=== PATIENT | female | born 1970 | race Caucasian/White ===

== ENCOUNTER 2017-12-24 10:33 | Outpatient (CLI) | payer OTHER ==
--- NOTE | 2017-12-27 08:51 | Mammography Report ---
Reason: ANNUAL SCREENING Procedure Date: 12/24/2017 Accession Number: [id number] / [id number] Procedure: GABBY - Screening Mammo w/Ridge CPT Code: FULL RESULT: EXAM: Screening Mammo w/Ridge DATE: 12/24/2017 11:54 AM CLINICAL HISTORY: Routine screening. Family history breast cancer mother age 56 and grandmother age 60. No personal history of breast cancer. TECHNIQUE: Bilateral CC and MLO views were obtained. COMPARISON: 03/14/2015 through 03/25/2012 FINDINGS: The breasts demonstrate heterogeneously dense fibroglandular parenchyma bilaterally. There is suboptimal inclusion of posterior tissues and pectoralis muscle on the right MLO view compared to prior exams. There are no suspicious masses, calcifications or areas of distortion. IMPRESSION: Incomplete examination RECOMMENDATION: Technical repeat right MLO view. BI-RADS CATEGORY 0: Incomplete examination STANDARD QUALIFYING STATEMENTS: 1. This examination was not reviewed with the aid of Computer-Aided Detection (CAD). 2. A negative or benign imaging report should not preclude biopsy if clinically suspicious findings are present. 3. Dense breasts may obscure an underlying neoplasm. 4. This examination was reviewed with the aid of 3D breast imaging (tomosynthesis).
== END 2017-12-24 10:34 | disposition home or self-care (01) ==
LOC: DI 10:33
PROVIDERS: ATTEND Registered Nurse
DX: Z12.31 Encounter for screening mammogram for malignant neoplasm of breast (principal); R92.2 Inconclusive mammogram; Z80.3 Family history of malignant neoplasm of breast
CPT/HCPCS: 77063; 77067

== ENCOUNTER 2017-12-24 10:38 | Outpatient (CLI) | payer OTHER ==
--- NOTE | 2017-12-24 13:33 | Ultrasound Report ---
Reason: MENORRHAGIA, DYSMENORRHEA Procedure Date: 12/24/2017 Accession Number: [id number] / [id number] Procedure: US - Pelvic w/Transvaginal CPT Code: FULL RESULT: EXAM: PELVIC ULTRASOUND EXAM DATE: 12/24/2017 12:48 PM. CLINICAL HISTORY: MENORRHAGIA, DYSMENORRHEA. COMPARISON: None. TECHNIQUE: Realtime transabdominal pelvic scan performed to identify the uterus and adnexa and as an overview of other pelvic structures, followed by transvaginal scan to provide greater detail of the uterus and adnexa, with static image documentation. FINDINGS: Uterus: 6.9 x 4.8 x 4.2 cm, volume 72 cc. Anteverted position. Normal overall size and echotexture. Masses: None. Endometrium: 6 mm. Normal. Cervix: Unremarkable. Right Ovary: 3.1 x 2 x 1.4 cm, volume 4.5 cc. Normal echotexture and blood flow. Left Ovary: 2 x 1.8 x 1.4 cm, volume 2.6 cc. Normal echotexture and blood flow. Free Fluid: None. Other: None. IMPRESSION: Normal pelvic ultrasound. [facility]
== END 2017-12-24 10:39 | disposition home or self-care (01) ==
LOC: DI 10:38
PROVIDERS: ATTEND Registered Nurse
DX: N92.0 Excessive and frequent menstruation with regular cycle (principal); N94.6 Dysmenorrhea, unspecified
CPT/HCPCS: 76830; 76856

== ENCOUNTER 2018-04-12 08:52 | Outpatient (CLI) | payer OTHER ==
--- NOTE | 2018-04-12 16:53 | Mammography Report ---
Reason: ROUTINE MAMMO Procedure Date: 04/12/2018 Accession Number: [id number] / [id number] Procedure: GABBY - Screening Mammo w/Ridge CPT Code: FULL RESULT: EXAM: Screening Mammo w/Ridge DATE: 04/12/2018 9:37 AM CLINICAL HISTORY: Technical recall from screening for repeat right MLO view. TECHNIQUE: The right MLO view was obtained. COMPARISON: 12/24/2017 through 03/25/2012. FINDINGS: Images are interpreted in conjunction with the images obtained 12/24/2017. The breasts demonstrate heterogeneously dense fibroglandular parenchyma bilaterally. No suspicious masses, clustered microcalcifications, or regions of architectural distortion are identified. IMPRESSION: Negative examination RECOMMENDATION: Routine annual screening unless otherwise clinically indicated. BIRADS CATEGORY 1: Negative STANDARD QUALIFYING STATEMENTS: 1. This examination was not reviewed with the aid of Computer-Aided Detection (CAD). 2. A negative or benign imaging report should not delay biopsy if clinically suspicious findings are present. Consider surgical consultation if warrented. More than 5% of cancers are not identified by imaging. 3. Dense breasts may obscure an underlying neoplasm. 4. This examination was reviewed with the aid of 3D breast imaging (tomosynthesis).
== END 2018-04-12 08:53 | disposition home or self-care (01) ==
LOC: DI 08:52
PROVIDERS: ATTEND Registered Nurse
DX: Z12.31 Encounter for screening mammogram for malignant neoplasm of breast (principal)
CPT/HCPCS: 77063; 77067

== ENCOUNTER 2018-12-30 07:42 | Emergency (ER) | payer OTHER ==
[2018-12-30] MEDS ORDERED: LIDOCAINE VISCOUS 2% 15 ML UDC MM STA (07:57)
[2018-12-30] MEDS ORDERED: ONDANSETRON 4 MG/2 ML VIAL IVP STA (07:57)
[2018-12-30] MEDS ORDERED: MAG HYDROX/AL HYDROX/SIMETH 30 ML UDC PO STA (07:57)
[2018-12-30] MEDS ORDERED: SUCRALFATE 1 GM/10 ML UDC PO STA (07:57)
[2018-12-30] MEDS ORDERED: FAMOTIDINE 20 MG TABLET PO STA (07:57)
--- NOTE | 2018-12-30 08:02 | ED Physician Documentation ---
History of Present Illness - Stated complaint Stated Complaint: CP/SOA - History obtained from History obtained from: Patient - History of Present Illness Timing: How many days ago (2) Pain level max: 7 Pain level now: 5 - Additonal information Additional information: 48-year-old female with a history of GERD presents to the emergency department complaining of substernal chest pain for the past 2 days. Constant. Worse with eating or drinking. States every time she eats or drinks she feels like she is going to vomit. Is taking omeprazole. Saw her GI yesterday for same. She states she is not taking any Maalox, Carafate, Pepcid, etc. No cardiac history. No shortness of breath. Pain does not radiate. No diarrhea. No fevers. No recent illnesses. Review of Systems Ten Systems: 10 systems reviewed and negative Constitutional: denies: Fever, Chills Cardiac: denies: Palpitations Respiratory: denies: Cough GI: reports: Abdominal Pain (Epigastric), Nausea, Vomiting. denies: Diarrhea : denies: Dysuria Skin: denies: Rash Musculoskeletal: denies: Neck pain, Back pain Neurologic: denies: Headache PD PAST MEDICAL HISTORY - Past Medical History Past Medical History: Yes GI: GERD - Past Surgical History Past Surgical History: No - Present Medications Home Medications: Ambulatory Orders Medication Instructions Recorded Confirmed Albuterol Sulf [Ventolin Hfa 0 puffs PRN 12/30/18 Inhaler] FLUoxetine [PROzac] 0 mg DAILY 12/30/18 12/30/18 Famotidine [Pepcid] 20 mg PO BID #60 tablet 12/30/18 Omeprazole 0 mg DAILY 12/30/18 12/30/18 Ondansetron Odt [Zofran] 4 mg TL Q6H PRN #10 tablet 12/30/18 Purple [place] Steroid Inhale 0 puffs 12/30/18 Sucralfate [Carafate] 1 gm PO ACHS #60 tablet 12/30/18 - Allergies Allergies/Adverse Reactions: Allergies Allergy/AdvReac Type Severity Reaction Status Date / Time No Known Drug Allergies Allergy Verified 12/30/18 08:43 - Living Situation Living Situation: reports: With family Living Arrangement: reports: At home - Social History Does the pt smoke?: No Does the pt drink ETOH?: No Does the pt have substance abuse?: Yes Substance Use and Type: Marijuana - Family History Family history: reports: Non contributory PD ED PE NORMAL - Vitals Vital signs reviewed: Yes - General General: Alert and oriented X 3, No acute distress - HEENT HEENT: PERRL, Moist mucous membranes - Neck Neck: Supple, no meningeal sign - Cardiac Cardiac: RRR, Strong equal pulses - Respiratory Respiratory: No respiratory distress, Clear bilaterally - Abdomen Abdomen: Soft, Non tender, Non distended - Derm Derm: Warm and dry - Extremities Extremities: No edema - Neuro Neuro: Alert and oriented X 3 - Psych Psych: Normal mood, Normal affect Results - Vitals Vitals: Vital Signs - 24 hr 12/30/18 12/30/18 12/30/18 07:48 08:14 08:33 Temperature 36.9 C Heart Rate 74 84 Respiratory 20 22 Rate Blood Pressure 157/100 H 135/84 H O2 Saturation 99 98 12/30/18 09:40 Temperature 98.3 C H Heart Rate 71 Respiratory 16 Rate Blood Pressure 145/82 H O2 Saturation 96 Oxygen O2 Source Room air - EKG (time done) 0750 Rate: Rate (enter#) (73) Rhythm: NSR [place]: Normal Intervals: Normal [place] QRS: Normal Ischemia: Normal ST segments Computer interpretation: Agree with computer - Labs Labs: Laboratory Tests 12/30/18 12/30/18 12/30/18 08:30 08:30 08:30 WBC 11.1 H RBC 4.89 Hgb 15.6 Hct 46.3 MCV 94.7 MCH 31.9 H MCHC 33.7 RDW 13.6 Plt Count 274 MPV 10.7 Neut # (Auto) 9.2 H Lymph # (Auto) 1.2 L [place] # (Auto) 0.5 Eos # (Auto) 0.1 Baso # (Auto) 0.1 Absolute Nucleated RBC 0.00 Nucleated RBC % 0.0 Sodium 138 Potassium 3.4 L Chloride 105 Carbon Dioxide 23 Anion Gap 10.0 BUN 8 Creatinine 0.6 Estimated GFR (MDRD) 108 Glucose 128 H Calcium 8.9 Total Bilirubin 1.1 H AST 19 ALT 22 Alkaline Phosphatase 43 Troponin I High Sens < 2.3 L Total Protein 8.2 Albumin 4.2 Globulin 4.0 Albumin/Globulin Ratio 1.1 Lipase 24 - Rads (name of study) cxr Radiology: Prelim report reviewed, EMP read contemporaneously, See rad report (normal) PD MEDICAL DECISION MAKING - ED course Complexity details: reviewed results, re-evaluated patient, considered differential, d/w patient ED course: Patient with chest pain that is consistent with gastroesophageal reflux disease. Symptoms resolved with GI cocktail. Feels much better. Tolerating p.o. without difficulty. We will add Pepcid, Carafate and Zofran to her current regimen. Patient counseled regarding signs and symptoms for which I believe and urgent re-evaluation would be necessary. Patient with good understanding of and agreement to plan and is comfortable going home at this time This document was made in part using voice recognition software. While efforts are made to proofread this document, sound alike and grammatical errors may occur. Departure - Departure Disposition: 01 Home, Self Care Clinical Impression: GERD (gastroesophageal reflux disease) Qualifiers: Esophagitis presence: with esophagitis Qualified Code(s): K21.0 - Gastro- esophageal reflux disease with esophagitis Condition: Good Instructions: ED GERD Follow-Up: Tasneem Waite ARNP [Primary Care Provider] - Within 1 week Prescriptions: Famotidine [Pepcid] 20 mg PO BID #60 tablet Ondansetron Odt [Zofran] 4 mg TL Q6H PRN #10 tablet PRN Reason: Nausea / Vomiting Sucralfate [Carafate] 1 gm PO ACHS #60 tablet Comments: Return if you worsen. Follow-up with your doctor for further care. Drink plenty of fluids. Eat a bland diet. Avoid anything fried, spicy. Avoid aspirin, ibuprofen. Avoid alcohol. Discharge Date/Time: 12/30/18 09:43
--- NOTE | 2018-12-30 08:37 | XRAY Report ---
Reason: chest pain Procedure Date: 12/30/2018 Accession Number: [id number] / [id number] Procedure: XR - Chest 1 View X-Ray CPT Code: 76408 Final Report FULL RESULT: EXAM: CHEST RADIOGRAPHY EXAM DATE: 12/30/2018 08:15 AM. CLINICAL HISTORY: Chest pain. COMPARISON: 05/07/2008 3:56 AM. TECHNIQUE: 1 view. FINDINGS: Lungs/Pleura: No focal opacities evident. No pleural effusion. No pneumothorax. Mediastinum: Within exam limitations, the cardiomediastinal contour is normal. Other: None. IMPRESSION: Normal single view chest. [facility]
[2018-12-30 08:39] LABS: BASOPHILS # (AUTO) 0.1 10^3/uL (0.0-0.1); BASOPHILS % (AUTO) 0.4 %; EOSINOPHILS # (AUTO) 0.1 10^3/uL (0.0-0.7); HGB - HEMOGLOBIN 15.6 g/dL (12.0-16.0); LYMPHOCYTES # (AUTO) 1.2 10^3/uL (1.5-3.5); LYMPHOCYTES % (AUTO) 11.1 %; MEAN CORPUSCULAR HEMOGLOBIN 31.9 pg (27.0-31.0); MEAN CORPUSCULAR HGB CONC 33.7 g/dL (32.0-36.0); MEAN CORPUSCULAR VOLUME 94.7 fL (81.0-99.0); MEAN PLATELET VOLUME 10.7 fL (7.9-10.8); MONOCYTES # (AUTO) 0.5 10^3/uL (0.0-1.0); MONOCYTES % (AUTO) 4.1 %; NEUTROPHILS # (AUTO) 9.2 10^3/uL (1.5-6.6); PLT - PLATELET COUNT 274 10^3/uL (130-450); RED BLOOD COUNT 4.89 10^6/uL (4.20-5.40); RED CELL DISTRIBUTION WIDTH 13.6 % (12.0-15.0); WHITE BLOOD COUNT 11.1 x10^3/uL (4.8-10.8)
[2018-12-30] MEDS ORDERED: ACETAMINOPHEN 325 MG TABLET PO STA (08:48)
[2018-12-30 08:53] LABS: ALBUMIN 4.2 g/dL (3.2-5.5); ALBUMIN/GLOBULIN RATIO 1.1 (1.0-2.2); BILIRUBIN,TOTAL 1.1 mg/dL (0.2-1.0); CALCIUM 8.9 mg/dL (8.5-10.3); CREATININE 0.6 mg/dL (0.4-1.0); TOTAL PROTEIN 8.2 g/dL (6.7-8.2)
[2018-12-30 09:42] VITALS: BP 145/82
== END 2018-12-30 09:43 | disposition home or self-care (01) ==
LOC: ED 07:42
DX: K21.0 Gastro-esophageal reflux disease with esophagitis (principal)
CPT/HCPCS: 36415; 71045; 80053; 83690; 84484; 85025; 93005; 96374; 99284; A9270

== ENCOUNTER 2021-07-02 10:55 | Outpatient (CLI) | payer OTHER ==
[2021-07-02 14:08] LABS: BASOPHILS # (AUTO) 0.1 10^3/uL (0.0-0.1); BASOPHILS % (AUTO) 0.7 %; EOSINOPHILS # (AUTO) 0.4 10^3/uL (0.0-0.7); EOSINOPHILS % (AUTO) 5.5 %; HCT - HEMATOCRIT 44.8 % (37.0-47.0); HGB - HEMOGLOBIN 14.8 g/dL (12.0-16.0); LYMPHOCYTES # (AUTO) 2.4 10^3/uL (1.5-3.5); LYMPHOCYTES % (AUTO) 32.5 %; MEAN CORPUSCULAR VOLUME 93.9 fL (81.0-99.0); MONOCYTES # (AUTO) 0.5 10^3/uL (0.0-1.0); MONOCYTES % (AUTO) 6.2 %; NEUTROPHILS % (AUTO) 54.8 %; PLT - PLATELET COUNT 299 10^3/uL (130-450); RED BLOOD COUNT 4.77 10^6/uL (4.20-5.40); RED CELL DISTRIBUTION WIDTH 14.7 % (12.0-15.0); WHITE BLOOD COUNT 7.3 x10^3/uL (4.8-10.8)
[2021-07-02 14:41] LABS: ALBUMIN 3.9 g/dL (3.2-5.5); ALBUMIN/GLOBULIN RATIO 1.1 (1.0-2.2); BILIRUBIN,TOTAL 0.5 mg/dL (0.2-1.0); CREATININE 0.7 mg/dL (0.4-1.0); POTASSIUM 3.8 mmol/L (3.5-5.0); TOTAL PROTEIN 7.6 g/dL (6.7-8.2)
[2021-07-02 14:51] LABS: THYROID STIMULATING HORMONE 1.3 uIU/mL (0.34-5.60)
[2021-07-02 14:58] LABS: FERRITIN 31.6 ng/mL (11.0-306.8)
== END 2021-07-02 10:56 | disposition home or self-care (01) ==
LOC: LAB.S 10:55
PROVIDERS: ATTEND Registered Nurse
DX: L65.9 Nonscarring hair loss, unspecified (principal)
CPT/HCPCS: 36415; 80053; 82728; 83540; 84443; 84466; 85025; 85651

== ENCOUNTER 2022-07-27 10:34 | Outpatient (CLI) | payer OTHER ==
--- NOTE | 2022-07-27 16:53 | XRAY Report ---
PROCEDURE: Lumbar Spine 2 View INDICATIONS: LOW BACK PAIN TECHNIQUE: 2 views of the lumbar spine were acquired. COMPARISON: None. FINDINGS: Bones: 5 [id number] vertebrae are present. There is normal bony alignment. No vertebral body compression fractures. No suspicious bony lesions. Multilevel disc space narrowing and osteophyte f ormation, as well as facet hypertrophy. Soft tissues: Overlying bowel gas pattern is normal. No suspicious soft tissue calcifications. IMPRESSION: Multilevel degenerative disc and facet disease. No acute fracture. No osseous lesion. If symptoms and/or clinical suspicion for pathology continue, further assessment with repeat plain film s, or advanced imaging (e.g., CT, MRI, or bone scan) is recommended for further assessment. Reviewed by: Carl Tavares MD on 07/27/2022 4:52 PM PDT Approved by: Carl Tavares MD on 07/27/2022 4:52 PM PDT Station ID: [id number]
== END 2022-07-27 10:35 | disposition home or self-care (01) ==
LOC: DI.S 10:34
PROVIDERS: ATTEND Registered Nurse
DX: M47.816 Spondylosis without myelopathy or radiculopathy, lumbar region (principal); M51.36 Other intervertebral disc degeneration, lumbar region